=== PATIENT | female | born 1945 | race Caucasian/White ===

== ENCOUNTER 2016-08-29 19:51 | Emergency (ER) | payer MEDICARE ==
--- NOTE | 2016-09-15 16:41 | ER ---
ADMIT: 08/29/2016 RM/LOC: ER [facility] MR#: [id number] [address] ALBERT SILVERMAN Mahesh [facility] [place] [address] Emergency Room Report SEX: F AGE: 71 : 1945 DATE: 08/29/2016 A 71-year-old female, comes to the Emergency Department with complaints of right back pain times the past 2 or 3 days. She is unable to quantify or qualify the pain. See T-sheet for remainder of history and physical. Ultrasound of the lower extremity was negative for DVT or Daniels cyst. The patient diagnosed with leg pain, given prescription for Ultram, instructed to follow up with primary doctor this week. Gordy Cleveland MD/ jen JOB #: [id number] CC: Kaveh Anders MD, Attending Physician Jael Conn MD, Family Physician
== END 2016-08-29 21:19 | disposition home or self-care (01) ==
LOC: ER 19:51
DX: M79.604 Pain in right leg (principal); I10 Essential (primary) hypertension; Z79.899 Other long term (current) drug therapy; Z88.5 Allergy status to narcotic agent; Z88.1 Allergy status to other antibiotic agents; Z88.8 Allergy status to other drugs, medicaments and biological substances; Z90.11 Acquired absence of right breast and nipple; Z90.711 Acquired absence of uterus with remaining cervical stump

== ENCOUNTER 2016-09-01 16:28 | Emergency (ER) | payer MEDICARE ==
--- NOTE | 2016-09-09 18:56 | ER ---
ADMIT: 09/01/2016 RM/LOC: ER [facility] MR#: [id number] [id number] ALBERT SILVERMAN Mahesh [address] [place] [address] Emergency Room Report SEX: F AGE: 71 : 1945 DATE: 09/01/2016 ADDENDUM: CHIEF COMPLAINT: Right leg pain. HISTORY OF PRESENT ILLNESS: This is a 71-year-old female, who has no injury to her leg, but she has right lower leg pain. An ultrasound was done three days ago, but that was negative. An x-ray was done here in the emergency room, it is negative for any fracture. I told her more than likely this could just be more of a calf strain. Told her to go home, ice, use ibuprofen or Tylenol for pain, and follow up if worsen. CLINICAL IMPRESSION: Right lower leg pain. KEIRA Bates / Harish Bartlett MD / bettyl JOB #: [id number] CC: Harish Bartlett MD, Attending Physician Jael Conn MD, Family Physician
== END 2016-09-01 18:20 | disposition home or self-care (01) ==
LOC: ER 16:28
DX: M79.661 Pain in right lower leg (principal); S86.211A Strain of muscle(s) and tendon(s) of anterior muscle group at lower leg level, right leg, initial encounter; X58.XXXA Exposure to other specified factors, initial encounter; Y92.009 Unspecified place in unspecified non-institutional (private) residence as the place of occurrence of the external cause